=== PATIENT | male | born 1960 | race Caucasian/White ===

== ENCOUNTER 2017-06-10 05:45 | Day surgery (SDC) | payer OTHER | END 2017-06-10 09:15 | disposition home or self-care (01) | LOC: FECT 05:45 | PROC: GZB4ZZZ Other Electroconvulsive Therapy (ICD-10-PCS; principal; 2017-06-10) | DX: F33.2 Major depressive disorder, recurrent severe without psychotic features (principal) | CPT/HCPCS: 36415; 80053; 85027; 90870; 93005; 94760 ==

== ENCOUNTER 2017-06-12 05:48 | Day surgery (SDC) | payer OTHER ==
[2017-06-10 10:41] VITALS: BMI 29.2
[2017-06-12] MEDS ORDERED: KETAMINE HCL 500 MG/10 ML VIAL ONE (07:05)
[2017-06-12 08:29] VITALS: TEMP 97.6
[2017-06-12 08:59] VITALS: BP 108/68; PULSE 68
== END 2017-06-12 08:50 | disposition home or self-care (01) ==
LOC: FECT 05:48
PROVIDERS: ATTEND Psychiatry & Neurology Psychiatry
PROC: GZB4ZZZ Other Electroconvulsive Therapy (ICD-10-PCS; principal; 2017-06-12 07:15)
DX: F33.2 Major depressive disorder, recurrent severe without psychotic features (principal)
CPT/HCPCS: 90870; 94760

== ENCOUNTER 2017-06-14 05:36 | Day surgery (SDC) | payer OTHER | END 2017-06-14 08:35 | disposition home or self-care (01) | LOC: FECT 05:36 | PROC: GZB4ZZZ Other Electroconvulsive Therapy (ICD-10-PCS; principal; 2017-06-14) | DX: F33.2 Major depressive disorder, recurrent severe without psychotic features (principal) | CPT/HCPCS: 90870; 94760 ==

== ENCOUNTER 2017-06-17 05:49 | Day surgery (SDC) | payer OTHER ==
[2017-06-17 06:14] VITALS: TEMP 98; BMI 28.7
[2017-06-17] MEDS ORDERED: KETAMINE HCL 500 MG/10 ML VIAL ONE (06:52)
[2017-06-17 08:21] VITALS: BP 110/64; PULSE 64
== END 2017-06-17 08:15 | disposition home or self-care (01) ==
LOC: FECT 05:49
PROVIDERS: ATTEND Psychiatry & Neurology Psychiatry
PROC: GZB4ZZZ Other Electroconvulsive Therapy (ICD-10-PCS; principal; 2017-06-17 07:15)
DX: F33.2 Major depressive disorder, recurrent severe without psychotic features (principal)
CPT/HCPCS: 90870; 94760

== ENCOUNTER 2017-06-19 05:40 | Day surgery (SDC) | payer OTHER ==
[2017-06-19 06:20] VITALS: BMI 29.0
[2017-06-19] MEDS ORDERED: KETAMINE HCL 500 MG/10 ML VIAL ONE (07:10)
[2017-06-19 08:10] VITALS: TEMP 97.7
[2017-06-19 08:32] VITALS: BP 100/61; PULSE 69
== END 2017-06-19 08:40 | disposition home or self-care (01) ==
LOC: FECT 05:40
PROVIDERS: ATTEND Psychiatry & Neurology Psychiatry
PROC: GZB4ZZZ Other Electroconvulsive Therapy (ICD-10-PCS; principal; 2017-06-19 07:30)
DX: F33.2 Major depressive disorder, recurrent severe without psychotic features (principal)
CPT/HCPCS: 90870; 94760

== ENCOUNTER 2017-06-21 05:58 | Day surgery (SDC) | payer OTHER ==
[2017-06-21 06:15] VITALS: TEMP 97.9; BMI 28.8
[2017-06-21] MEDS ORDERED: KETAMINE HCL 500 MG/10 ML VIAL ONE (06:49)
[2017-06-21 09:05] VITALS: PULSE 64
[2017-06-21 09:09] VITALS: BP 100/61
== END 2017-06-21 08:40 | disposition home or self-care (01) ==
LOC: FECT 05:58
PROVIDERS: ATTEND Psychiatry & Neurology Psychiatry
PROC: GZB4ZZZ Other Electroconvulsive Therapy (ICD-10-PCS; principal; 2017-06-21 08:15)
DX: F33.2 Major depressive disorder, recurrent severe without psychotic features (principal)
CPT/HCPCS: 90870; 94760

== ENCOUNTER 2017-06-24 05:43 | Day surgery (SDC) | payer OTHER ==
[2017-06-24 06:17] VITALS: BMI 28.8
[2017-06-24] MEDS ORDERED: KETAMINE HCL 500 MG/10 ML VIAL ONE (07:00)
[2017-06-24 07:55] VITALS: TEMP 97.9
[2017-06-24 08:20] VITALS: BP 99/70; PULSE 67
== END 2017-06-24 08:23 | disposition home or self-care (01) ==
LOC: FECT 05:43
PROVIDERS: ATTEND Psychiatry & Neurology Psychiatry
PROC: GZB4ZZZ Other Electroconvulsive Therapy (ICD-10-PCS; principal; 2017-06-24 07:00)
DX: F33.2 Major depressive disorder, recurrent severe without psychotic features (principal)
CPT/HCPCS: 90870; 94760

== ENCOUNTER 2017-06-26 05:44 | Day surgery (SDC) | payer OTHER ==
[2017-06-26 06:06] VITALS: BMI 28.9
[2017-06-26] MEDS ORDERED: KETAMINE HCL 500 MG/10 ML VIAL ONE (06:53)
[2017-06-26 07:45] VITALS: TEMP 97.8
[2017-06-26 08:21] VITALS: BP 110/64; PULSE 63
== END 2017-06-26 08:25 | disposition home or self-care (01) ==
LOC: FECT 05:44
PROVIDERS: ATTEND Psychiatry & Neurology Psychiatry
PROC: GZB4ZZZ Other Electroconvulsive Therapy (ICD-10-PCS; principal; 2017-06-26 07:00)
DX: F33.2 Major depressive disorder, recurrent severe without psychotic features (principal)
CPT/HCPCS: 90870; 94760

== ENCOUNTER 2017-06-28 05:39 | Day surgery (SDC) | payer OTHER ==
[2017-06-28 06:16] VITALS: TEMP 97.7; BMI 28.8
[2017-06-28] MEDS ORDERED: KETAMINE HCL 500 MG/10 ML VIAL ONE (07:14)
[2017-06-28 08:12] VITALS: PULSE 53
[2017-06-28 08:43] VITALS: BP 114/68
== END 2017-06-28 08:25 | disposition home or self-care (01) ==
LOC: FECT 05:39
PROVIDERS: ATTEND Psychiatry & Neurology Psychiatry
PROC: GZB4ZZZ Other Electroconvulsive Therapy (ICD-10-PCS; principal; 2017-06-28 07:30)
DX: F33.2 Major depressive disorder, recurrent severe without psychotic features (principal)
CPT/HCPCS: 90870; 94760

== ENCOUNTER 2017-07-01 05:39 | Day surgery (SDC) | payer OTHER ==
[2017-07-01 06:25] VITALS: BMI 28.7
[2017-07-01] MEDS ORDERED: KETAMINE HCL 500 MG/10 ML VIAL ONE (07:07)
[2017-07-01] MEDS ORDERED: ACETAMINOPHEN 325 MG TABLET (FP) PO PRN (07:39)
[2017-07-01] MEDS ORDERED: ONDANSETRON 4 MG/2 ML VIAL IVPUSH PRN (07:39)
[2017-07-01 08:12] VITALS: PULSE 68; TEMP 97.7
[2017-07-01 08:33] VITALS: BP 104/64
== END 2017-07-01 08:25 | disposition home or self-care (01) ==
LOC: FECT 05:39
PROVIDERS: ATTEND Psychiatry & Neurology Psychiatry
PROC: GZB0ZZZ Electroconvulsive Therapy, Unilateral-Single Seizure (ICD-10-PCS; principal; 2017-07-01 07:30)
DX: F33.2 Major depressive disorder, recurrent severe without psychotic features (principal)
CPT/HCPCS: 90870; 94760

== ENCOUNTER 2017-07-03 05:35 | Day surgery (SDC) | payer OTHER ==
[2017-07-03 05:55] VITALS: BMI 28.8
[2017-07-03] MEDS ORDERED: KETAMINE HCL 500 MG/10 ML VIAL ONE (06:53)
[2017-07-03 07:44] VITALS: TEMP 97.6
[2017-07-03 08:14] VITALS: BP 104/67; PULSE 72
[2017-07-03] MEDS ORDERED: ONDANSETRON 4 MG/2 ML VIAL IVPUSH PRN (08:23)
[2017-07-03] MEDS ORDERED: ACETAMINOPHEN 325 MG TABLET (FP) PO PRN (08:23)
== END 2017-07-03 08:05 | disposition home or self-care (01) ==
LOC: FECT 05:35
PROVIDERS: ATTEND Psychiatry & Neurology Psychiatry
PROC: GZB4ZZZ Other Electroconvulsive Therapy (ICD-10-PCS; principal; 2017-07-03 07:15)
DX: F33.2 Major depressive disorder, recurrent severe without psychotic features (principal)
CPT/HCPCS: 90870; 94760

== ENCOUNTER 2017-07-05 05:39 | Day surgery (SDC) | payer OTHER ==
[2017-07-05 06:00] VITALS: BMI 28.8
[2017-07-05] MEDS ORDERED: KETAMINE HCL 500 MG/10 ML VIAL ONE (06:46)
[2017-07-05 07:41] VITALS: TEMP 97.8
[2017-07-05 08:15] VITALS: BP 109/70; PULSE 61
== END 2017-07-05 08:18 | disposition home or self-care (01) ==
LOC: FECT 05:39
PROVIDERS: ATTEND Psychiatry & Neurology Psychiatry
PROC: GZB4ZZZ Other Electroconvulsive Therapy (ICD-10-PCS; principal; 2017-07-05 07:00)
DX: F33.2 Major depressive disorder, recurrent severe without psychotic features (principal)
CPT/HCPCS: 90870; 94760

== ENCOUNTER 2017-07-08 05:37 | Day surgery (SDC) | payer OTHER ==
[2017-07-08 06:13] VITALS: TEMP 97.5; BMI 28.7
[2017-07-08] MEDS ORDERED: KETAMINE HCL 500 MG/10 ML VIAL ONE (06:57)
[2017-07-08 08:21] VITALS: BP 119/74; PULSE 57
== END 2017-07-08 08:15 | disposition home or self-care (01) ==
LOC: FECT 05:37
PROVIDERS: ATTEND Psychiatry & Neurology Psychiatry
PROC: GZB4ZZZ Other Electroconvulsive Therapy (ICD-10-PCS; principal; 2017-07-08 08:00)
DX: F33.2 Major depressive disorder, recurrent severe without psychotic features (principal)
CPT/HCPCS: 90870; 94760

== ENCOUNTER 2017-07-10 05:45 | Day surgery (SDC) | payer OTHER ==
[2017-07-10 08:43] VITALS: BP 104/81; PULSE 72; TEMP 98
--- NOTE | 2017-07-10 09:01 | HP ---
Admitting History and Physical - Admission History of Present Illness: patient is a 57-year-old male, with a past medical history of depression and anxiety. Patient presents for ECT, this will be his 14th ECT his last ECT was . Patient reports minimal improvement in depressive symptoms starting ECT Effexor was added to patient's medication regimen today. Patient denies any recent illnesses or hospitalizations. Patient denies any suicidal or homicidal ideation or visual or auditory hallucinations. Patient Does report compliance with prescribed medications. History Source: Patient Limitations to Obtaining History: No Limitations - Smoking History Smoking history: Never smoked Have you smoked in the past 12 months: No - Alcohol/Substance Use Hx Alcohol Use: No History of Substance Use: reports: None - Social History Usual Living Arrangement: Yes: With Spouse ADL: Independent History of Recent Travel: No Home Medications - Allergies Allergies/Adverse Reactions: Allergies Allergy/AdvReac Type Severity Reaction Status Date / Time Penicillins Allergy Intermediate Hives Verified 06/28/17 06:20 - Home Medications Home Medications: Ambulatory Orders Divalproex [Depakote -] 250 mg PO DAILY 06/10/17 Divalproex [Depakote -] 500 mg PO HS 06/10/17 Escitalopram Oxalate [Lexapro -] 10 mg PO DAILY 06/10/17 Lurasidone HCl [Latuda] 60 mg PO DAILY 06/10/17 Family Disease History - Family Disease History Family Disease History: Diabetes: Father, Mother, Son, Heart Disease: Mother, Other: Father, Sister, Son Review of Systems - Review of Systems Constitutional: reports: No Symptoms Eyes: reports: No Symptoms HENT: reports: No Symptoms Neck: reports: No Symptoms Cardiovascular: reports: No Symptoms Respiratory: reports: No Symptoms Gastrointestinal: reports: No Symptoms Genitourinary: reports: No Symptoms Musculoskeletal: reports: No Symptoms Integumentary: reports: No Symptoms Neurological: reports: No Symptoms Endocrine: reports: No Symptoms Hematology/Lymphatic: reports: No Symptoms Psychiatric: reports: Anxiety, Depression Physical Examination Vital Signs: Vital Signs Temperature 98 F 07/10/17 08:42 Pulse Rate 72 07/10/17 08:42 Respiratory Rate 16 07/10/17 08:42 Blood Pressure 104/81 07/10/17 08:42 O2 Sat by Pulse Oximetry (%) 94 L 07/10/17 08:42 Constitutional: Yes: Well Nourished, No Distress, Calm Eyes: Yes: WNL, Conjunctiva Clear, EOM Intact HENT: Yes: WNL, Atraumatic, Normocephalic Neck: Yes: WNL, Supple, Trachea Midline Cardiovascular: Yes: WNL, Regular Rate and Rhythm, S1, S2 Respiratory: Yes: WNL, Regular, CTA Bilaterally Gastrointestinal: Yes: WNL, Normal Bowel Sounds, Soft ...Rectal Exam: Yes: Deferred Renal/: Yes: WNL Breast(s): Yes: WNL Musculoskeletal: Yes: WNL Extremities: Yes: WNL Edema: No Peripheral Pulses WNL: Yes Peripheral Pulses: Left Radial: 4+, Right Radial: 4+, Left Doralis Pedis: 3+, Right Dorsalis Pedis: 3+, Left Femoral: 3+, Right Femoral: 3+ Integumentary: Yes: WNL Neurological: Yes: WNL, Alert, Oriented, Cran Nerves II-XII Intact ...Motor Strength: WNL Psychiatric: Yes: WNL, Alert, Oriented Labs: Reviewed 06/10/2017. Imaging - Results EKG: Image Reviewed, Other (sinus bradycardia left axis deviation) Assessment/Plan patient is a 49-year-old male that presents for ECT labs and EKG reviewed. patient is medically optimized for procedure. informed consent risk and benefits to be obtained by Dr. Millan
[2017-07-12] MEDS ORDERED: KETAMINE HCL 500 MG/10 ML VIAL ONE (06:49)
== END 2017-07-10 08:55 | disposition home or self-care (01) ==
LOC: FECT 05:45
PROVIDERS: ATTEND Psychiatry & Neurology Psychiatry
PROC: GZB4ZZZ Other Electroconvulsive Therapy (ICD-10-PCS; principal; 2017-07-10 07:45)
DX: F33.2 Major depressive disorder, recurrent severe without psychotic features (principal)
CPT/HCPCS: 90870; 94760

== ENCOUNTER 2017-07-12 05:37 | Day surgery (SDC) | payer OTHER ==
[2017-07-12 06:12] VITALS: BMI 28.5
[2017-07-12 07:45] VITALS: PULSE 58; TEMP 98.6
[2017-07-12 08:41] VITALS: BP 103/67
== END 2017-07-12 08:15 | disposition home or self-care (01) ==
LOC: FECT 05:37
PROVIDERS: ATTEND Psychiatry & Neurology Psychiatry
PROC: GZB4ZZZ Other Electroconvulsive Therapy (ICD-10-PCS; principal; 2017-07-12 07:30)
DX: F33.2 Major depressive disorder, recurrent severe without psychotic features (principal)
CPT/HCPCS: 90870; 94760

== ENCOUNTER 2017-07-17 05:39 | Day surgery (SDC) | payer OTHER ==
[2017-07-11 15:55] VITALS: BMI 28.5
[2017-07-17 06:09] VITALS: TEMP 97.7
[2017-07-17] MEDS ORDERED: KETAMINE HCL 500 MG/10 ML VIAL ONE (06:49)
[2017-07-17 09:15] VITALS: BP 112/72; PULSE 66
== END 2017-07-17 08:20 | disposition home or self-care (01) ==
LOC: FECT 05:39
PROVIDERS: ATTEND Psychiatry & Neurology Psychiatry
PROC: GZB4ZZZ Other Electroconvulsive Therapy (ICD-10-PCS; principal; 2017-07-17 07:30)
DX: F33.2 Major depressive disorder, recurrent severe without psychotic features (principal)
CPT/HCPCS: 90870; 94760

== ENCOUNTER 2017-07-19 05:37 | Day surgery (SDC) | payer OTHER ==
[2017-07-19 06:05] VITALS: TEMP 97.5; BMI 28.6
[2017-07-19] MEDS ORDERED: KETAMINE HCL 500 MG/10 ML VIAL ONE (06:58)
[2017-07-19] MEDS ORDERED: ONDANSETRON 4 MG/2 ML VIAL IVPUSH PRN (07:59)
[2017-07-19] MEDS ORDERED: oxyCODONE HCL 5 MG TABLET PO PRN (07:59)
[2017-07-19 08:17] VITALS: BP 126/66; PULSE 54
== END 2017-07-19 08:15 | disposition home or self-care (01) ==
LOC: FECT 05:37
PROVIDERS: ATTEND Psychiatry & Neurology Psychiatry
PROC: GZB4ZZZ Other Electroconvulsive Therapy (ICD-10-PCS; principal; 2017-07-19 08:15)
DX: F33.2 Major depressive disorder, recurrent severe without psychotic features (principal)
CPT/HCPCS: 90870; 94760

== ENCOUNTER 2017-07-22 05:41 | Day surgery (SDC) | payer OTHER ==
[2017-07-22 06:27] VITALS: BMI 28.5
[2017-07-22] MEDS ORDERED: KETAMINE HCL 500 MG/10 ML VIAL ONE (07:24)
[2017-07-22 08:13] VITALS: TEMP 98.2
[2017-07-22 09:44] VITALS: BP 106/66; PULSE 72
== END 2017-07-22 09:00 | disposition home or self-care (01) ==
LOC: FECT 05:41
PROVIDERS: ATTEND Psychiatry & Neurology Psychiatry
PROC: GZB4ZZZ Other Electroconvulsive Therapy (ICD-10-PCS; principal; 2017-07-22 08:00)
DX: F33.2 Major depressive disorder, recurrent severe without psychotic features (principal)
CPT/HCPCS: 90870; 94760

== ENCOUNTER 2017-07-24 05:41 | Day surgery (SDC) | payer OTHER ==
[2017-07-24 06:24] VITALS: BMI 28.3
[2017-07-24] MEDS ORDERED: KETAMINE HCL 500 MG/10 ML VIAL ONE (06:56)
[2017-07-24 08:51] VITALS: BP 120/76; PULSE 66; TEMP 98.5
== END 2017-07-24 08:40 | disposition home or self-care (01) ==
LOC: FECT 05:41
PROVIDERS: ATTEND Psychiatry & Neurology Psychiatry
PROC: GZB4ZZZ Other Electroconvulsive Therapy (ICD-10-PCS; principal; 2017-07-24 08:00)
DX: F33.2 Major depressive disorder, recurrent severe without psychotic features (principal)
CPT/HCPCS: 90870; 94760

== ENCOUNTER 2017-08-07 05:40 | Day surgery (SDC) | payer OTHER ==
[2017-08-07 06:10] VITALS: BMI 28.8
[2017-08-07] MEDS ORDERED: KETAMINE HCL 500 MG/10 ML VIAL ONE (06:56)
[2017-08-07 08:09] VITALS: TEMP 97.3
[2017-08-07] MEDS ORDERED: ONDANSETRON 4 MG/2 ML VIAL IVPUSH PRN (08:10)
[2017-08-07] MEDS ORDERED: PROMETHAZINE HCL 25 MG/1 ML VIAL IVPUSH PRN (08:10)
[2017-08-07] MEDS ORDERED: ACETAMINOPHEN 500 MG TABLET (FP) PO PRN (08:10)
[2017-08-07 08:30] VITALS: BP 117/72; PULSE 62
== END 2017-08-07 08:32 | disposition home or self-care (01) ==
LOC: FECT 05:40
PROVIDERS: ATTEND Psychiatry & Neurology Psychiatry
PROC: GZB4ZZZ Other Electroconvulsive Therapy (ICD-10-PCS; principal; 2017-08-07 07:15)
DX: F33.2 Major depressive disorder, recurrent severe without psychotic features (principal)
CPT/HCPCS: 90870; 94760

== ENCOUNTER 2017-08-09 05:42 | Day surgery (SDC) | payer OTHER ==
[2017-08-09 06:05] VITALS: BMI 28.9
[2017-08-09] MEDS ORDERED: KETAMINE HCL 500 MG/10 ML VIAL ONE (07:02)
[2017-08-09 08:17] VITALS: TEMP 97.6
[2017-08-09 08:46] VITALS: BP 114/72; PULSE 58
== END 2017-08-09 08:50 | disposition home or self-care (01) ==
LOC: FECT 05:42
PROVIDERS: ATTEND Psychiatry & Neurology Psychiatry
PROC: GZB4ZZZ Other Electroconvulsive Therapy (ICD-10-PCS; principal; 2017-08-09 08:00)
DX: F33.2 Major depressive disorder, recurrent severe without psychotic features (principal)
CPT/HCPCS: 90870; 94760

== ENCOUNTER 2017-08-12 05:38 | Day surgery (SDC) | payer OTHER ==
[2017-08-12 06:05] VITALS: BMI 29.7
[2017-08-12] MEDS ORDERED: KETAMINE HCL 500 MG/10 ML VIAL ONE (06:54)
[2017-08-12 07:59] VITALS: TEMP 98.2
--- NOTE | 2017-08-12 08:16 | HP ---
Admitting History and Physical - Admission History of Present Illness: Patient is a 57 y/o male with a past medical history of depression and anxiety. patient presents for ect, his last ect was 08/09/17. Patient reports significant improvement in depressive symptoms since starting ect. He reports an improvement in his appetite and energy levels since starting ect. He denies any recent illnesses or hospitalizations. He denies any suicidal or homicidal ideation, visual or auditory hallucinations. History Source: Patient, Caregiver Limitations to Obtaining History: No Limitations - Smoking History Smoking history: Never smoked Have you smoked in the past 12 months: No - Alcohol/Substance Use Hx Alcohol Use: No History of Substance Use: reports: None - Social History Usual Living Arrangement: Yes: With Spouse ADL: Independent History of Recent Travel: No Home Medications - Allergies Allergies/Adverse Reactions: Allergies Allergy/AdvReac Type Severity Reaction Status Date / Time Penicillins Allergy Intermediate Hives Verified 08/09/17 11:59 - Home Medications Home Medications: Ambulatory Orders Divalproex [Depakote -] 250 mg PO DAILY 06/10/17 Divalproex [Depakote -] 500 mg PO HS 06/10/17 Venlafaxine HCl ER [Effexor Xr -] 150 mg PO DAILY 07/12/17 Olanzapine [Zyprexa -] 10 mg PO HS 08/07/17 Family Disease History - Family Disease History Family Disease History: Diabetes: Father, Mother, Son, Heart Disease: Mother, Other: Father, Sister, Son Review of Systems - Review of Systems Constitutional: reports: No Symptoms Eyes: reports: No Symptoms HENT: reports: No Symptoms Neck: reports: No Symptoms Cardiovascular: reports: No Symptoms Respiratory: reports: No Symptoms Gastrointestinal: reports: No Symptoms Genitourinary: reports: No Symptoms Musculoskeletal: reports: No Symptoms Integumentary: reports: No Symptoms Neurological: reports: No Symptoms Endocrine: reports: No Symptoms Hematology/Lymphatic: reports: No Symptoms Psychiatric: reports: No Symptoms Physical Examination Vital Signs: Vital Signs Temperature 98.2 F 08/12/17 07:45 Pulse Rate 66 08/12/17 07:45 Respiratory Rate 18 08/12/17 07:45 Blood Pressure 115/70 08/12/17 07:45 O2 Sat by Pulse Oximetry (%) 98 08/12/17 07:45 Constitutional: Yes: Well Nourished, No Distress, Calm Eyes: Yes: WNL, Conjunctiva Clear, EOM Intact HENT: Yes: WNL, Atraumatic, Normocephalic Neck: Yes: WNL, Supple, Trachea Midline Cardiovascular: Yes: WNL, Regular Rate and Rhythm, S1, S2 Respiratory: Yes: WNL, Regular, CTA Bilaterally Gastrointestinal: Yes: WNL, Normal Bowel Sounds, Soft ...Rectal Exam: Yes: Deferred Renal/: Yes: WNL Musculoskeletal: Yes: WNL Extremities: Yes: WNL Edema: No Peripheral Pulses WNL: Yes Integumentary: Yes: WNL Neurological: Yes: WNL, Alert, Oriented ...Motor Strength: WNL Psychiatric: Yes: WNL, Alert, Oriented Labs: reviewed 06/05 Imaging - Results EKG: Other (sinus bradycardia left axis deviation) Assessment/Plan patient is a 57 y/o male that presents for ect, labs and ekg reviewed patent is medically optimized for procedure informed consent, risks/benefits to be obtained by Dr Millan.
[2017-08-12 08:48] VITALS: BP 118/72; PULSE 64
== END 2017-08-12 08:50 | disposition home or self-care (01) ==
LOC: FECT 05:38
PROVIDERS: ATTEND Psychiatry & Neurology Psychiatry
PROC: GZB4ZZZ Other Electroconvulsive Therapy (ICD-10-PCS; principal; 2017-08-12 08:15)
DX: F33.2 Major depressive disorder, recurrent severe without psychotic features (principal)
CPT/HCPCS: 90870; 94760

== ENCOUNTER 2017-08-14 05:40 | Day surgery (SDC) | payer OTHER ==
[2017-08-14 06:10] VITALS: BMI 30.1
[2017-08-14] MEDS ORDERED: KETAMINE HCL 500 MG/10 ML VIAL ONE (07:00)
[2017-08-14 08:04] VITALS: TEMP 97.7
[2017-08-14 08:38] VITALS: BP 121/83; PULSE 74
== END 2017-08-14 08:40 | disposition home or self-care (01) ==
LOC: FECT 05:40
PROVIDERS: ATTEND Psychiatry & Neurology Psychiatry
PROC: GZB4ZZZ Other Electroconvulsive Therapy (ICD-10-PCS; principal; 2017-08-14 08:00)
DX: F33.2 Major depressive disorder, recurrent severe without psychotic features (principal)
CPT/HCPCS: 90870; 94760

== ENCOUNTER 2017-08-23 05:39 | Day surgery (SDC) | payer OTHER ==
[2017-08-23 06:13] VITALS: BMI 29.5
[2017-08-23] MEDS ORDERED: KETAMINE HCL 500 MG/10 ML VIAL ONE (06:57)
[2017-08-23 07:57] VITALS: TEMP 97.7
[2017-08-23 08:16] VITALS: BP 110/71; PULSE 67
[2017-08-23] MEDS ORDERED: ONDANSETRON 4 MG/2 ML VIAL IVPUSH PRN (09:28)
== END 2017-08-23 08:20 | disposition home or self-care (01) ==
LOC: FECT 05:39
PROVIDERS: ATTEND Psychiatry & Neurology Psychiatry
PROC: GZB4ZZZ Other Electroconvulsive Therapy (ICD-10-PCS; principal; 2017-08-23 08:00)
DX: F33.2 Major depressive disorder, recurrent severe without psychotic features (principal)

== ENCOUNTER 2017-08-30 05:41 | Day surgery (SDC) | payer OTHER ==
[2017-08-30 06:28] VITALS: BMI 30.1
[2017-08-30] MEDS ORDERED: KETAMINE HCL 500 MG/10 ML VIAL ONE (07:07)
[2017-08-30 08:11] VITALS: BP 114/78; PULSE 72
[2017-08-30 08:42] VITALS: TEMP 98.2
== END 2017-08-30 08:32 | disposition home or self-care (01) ==
LOC: FECT 05:41
PROVIDERS: ATTEND Psychiatry & Neurology Psychiatry
PROC: GZB4ZZZ Other Electroconvulsive Therapy (ICD-10-PCS; principal; 2017-08-30 08:00)
DX: F33.2 Major depressive disorder, recurrent severe without psychotic features (principal)
CPT/HCPCS: 90870; 94760

== ENCOUNTER 2017-09-06 05:39 | Day surgery (SDC) | payer OTHER ==
[2017-09-05 11:41] VITALS: BMI 30.1
[2017-09-06 06:11] VITALS: TEMP 97.6
[2017-09-06] MEDS ORDERED: KETAMINE HCL 500 MG/10 ML VIAL ONE (06:55)
[2017-09-06 08:15] VITALS: BP 125/81; PULSE 62
== END 2017-09-06 08:10 | disposition home or self-care (01) ==
LOC: FECT 05:39
PROVIDERS: ATTEND Psychiatry & Neurology Psychiatry
PROC: GZB4ZZZ Other Electroconvulsive Therapy (ICD-10-PCS; principal; 2017-09-06 08:30)
DX: F33.2 Major depressive disorder, recurrent severe without psychotic features (principal)
CPT/HCPCS: 90870; 94760

== ENCOUNTER 2017-09-09 05:41 | Day surgery (SDC) | payer OTHER ==
[2017-09-06 12:16] VITALS: BMI 30.1
[2017-09-09 06:11] VITALS: TEMP 98.1
[2017-09-09] MEDS ORDERED: KETAMINE HCL 500 MG/10 ML VIAL ONE (07:08)
[2017-09-09] MEDS ORDERED: ONDANSETRON 4 MG/2 ML VIAL IVPUSH PRN (07:25)
[2017-09-09 08:49] VITALS: BP 133/83; PULSE 60
== END 2017-09-09 08:35 | disposition home or self-care (01) ==
LOC: FECT 05:41
PROVIDERS: ATTEND Psychiatry & Neurology Psychiatry
PROC: GZB4ZZZ Other Electroconvulsive Therapy (ICD-10-PCS; principal; 2017-09-09 09:30)
DX: F33.2 Major depressive disorder, recurrent severe without psychotic features (principal)
CPT/HCPCS: 90870; 94760

== ENCOUNTER 2017-09-12 05:46 | Day surgery (SDC) | payer OTHER ==
[2017-09-11 14:59] VITALS: BMI 30.1
[2017-09-12 06:47] VITALS: TEMP 97.9
--- NOTE | 2017-09-12 07:05 | HP ---
Admitting History and Physical - Admission History of Present Illness: Patient is a 57 y/o male with a past medical history of depression and anxiety. Patient present for ect, he has been undergoing ect since 05/2017, his last ect was09/09/17. Patient reports feeling well, he reports a slight improvement in depressive symptoms since starting ECT. Patient reports his depakote was discontinued and reports feeling well since discontinuing the medications. patient denies any suicdal or homicidal ideation, visual or auditory hallucinations. History Source: Patient Limitations to Obtaining History: No Limitations - Smoking History Smoking history: Never smoked Have you smoked in the past 12 months: No - Alcohol/Substance Use Hx Alcohol Use: No History of Substance Use: reports: None - Social History Usual Living Arrangement: Yes: With Spouse ADL: Independent History of Recent Travel: No Home Medications - Allergies Allergies/Adverse Reactions: Allergies Allergy/AdvReac Type Severity Reaction Status Date / Time Penicillins Allergy Intermediate Hives Verified 09/12/17 06:52 - Home Medications Home Medications: Ambulatory Orders Venlafaxine HCl ER [Effexor Xr -] 150 mg PO DAILY 07/12/17 Olanzapine [Zyprexa -] 10 mg PO HS 08/07/17 Family Disease History - Family Disease History Family Disease History: Diabetes: Father, Mother, Son, Heart Disease: Mother, Other: Father, Sister, Son Review of Systems - Review of Systems Constitutional: reports: No Symptoms Eyes: reports: No Symptoms HENT: reports: No Symptoms Neck: reports: No Symptoms Cardiovascular: reports: No Symptoms Respiratory: reports: No Symptoms Gastrointestinal: reports: No Symptoms Genitourinary: reports: No Symptoms Musculoskeletal: reports: No Symptoms Integumentary: reports: No Symptoms Neurological: reports: No Symptoms Endocrine: reports: No Symptoms Hematology/Lymphatic: reports: No Symptoms Psychiatric: reports: Depression Physical Examination Vital Signs: Vital Signs Temperature 97.9 F 09/12/17 06:43 Pulse Rate 56 L 09/12/17 06:43 Respiratory Rate 16 09/12/17 06:43 Blood Pressure 136/75 09/12/17 06:43 O2 Sat by Pulse Oximetry (%) 97 09/12/17 06:43 Constitutional: Yes: Well Nourished, No Distress, Calm Eyes: Yes: WNL, Conjunctiva Clear, EOM Intact HENT: Yes: WNL, Atraumatic, Normocephalic Neck: Yes: WNL, Supple, Trachea Midline Cardiovascular: Yes: WNL, Regular Rate and Rhythm, S1, S2 Respiratory: Yes: WNL, Regular, CTA Bilaterally Gastrointestinal: Yes: WNL, Normal Bowel Sounds, Soft ...Rectal Exam: Yes: Deferred Renal/: Yes: WNL Musculoskeletal: Yes: WNL Extremities: Yes: WNL Edema: No Peripheral Pulses WNL: Yes Peripheral Pulses: Left Radial: 4+, Right Radial: 4+, Left Doralis Pedis: 3+, Right Dorsalis Pedis: 3+, Left Femoral: 3+, Right Femoral: 3+ Integumentary: Yes: WNL Neurological: Yes: WNL, Alert, Oriented ...Motor Strength: WNL Psychiatric: Yes: WNL, Alert, Oriented Labs: reviewed 09/04 Imaging - Results EKG: Image Reviewed, Other (nsr) Assessment/Plan patient is a 57 y/o male that presents for ect, labs and ekg reviewed patient is medically optimized for procedure informed consent, risks/benefits to be obtained by Dr Millan
[2017-09-12] MEDS ORDERED: ONDANSETRON 4 MG/2 ML VIAL IVPUSH PRN (07:18)
[2017-09-12] MEDS ORDERED: KETAMINE HCL 500 MG/10 ML VIAL ONE (08:06)
[2017-09-12 09:24] VITALS: BP 123/79; PULSE 69
== END 2017-09-12 09:25 | disposition home or self-care (01) ==
LOC: FECT 05:46
PROVIDERS: ATTEND Psychiatry & Neurology Psychiatry
PROC: GZB4ZZZ Other Electroconvulsive Therapy (ICD-10-PCS; principal; 2017-09-12 08:30)
DX: F33.2 Major depressive disorder, recurrent severe without psychotic features (principal)
CPT/HCPCS: 90870; 94760

== ENCOUNTER 2017-09-16 05:32 | Day surgery (SDC) | payer OTHER ==
[2017-09-13 15:10] VITALS: BMI 30.1
[2017-09-16] MEDS ORDERED: KETAMINE HCL 500 MG/10 ML VIAL ONE (07:04)
[2017-09-16 08:08] VITALS: TEMP 98
[2017-09-16 08:24] VITALS: BP 120/77; PULSE 68
== END 2017-09-16 08:20 | disposition home or self-care (01) ==
LOC: FECT 05:32
PROVIDERS: ATTEND Psychiatry & Neurology Psychiatry
PROC: GZB4ZZZ Other Electroconvulsive Therapy (ICD-10-PCS; principal; 2017-09-16 07:45)
DX: F33.2 Major depressive disorder, recurrent severe without psychotic features (principal)
CPT/HCPCS: 90870; 94760

== ENCOUNTER 2017-09-23 05:41 | Day surgery (SDC) | payer OTHER ==
[2017-09-23 06:06] VITALS: TEMP 98.1; BMI 29.5
[2017-09-23] MEDS ORDERED: KETAMINE HCL 500 MG/10 ML VIAL ONE (06:46)
[2017-09-23 08:13] VITALS: BP 136/80; PULSE 61
== END 2017-09-23 08:15 | disposition home or self-care (01) ==
LOC: FECT 05:41
PROVIDERS: ATTEND Psychiatry & Neurology Psychiatry
PROC: GZB4ZZZ Other Electroconvulsive Therapy (ICD-10-PCS; principal; 2017-09-23 08:00)
DX: F33.2 Major depressive disorder, recurrent severe without psychotic features (principal)
CPT/HCPCS: 90870; 94760

== ENCOUNTER 2017-09-26 05:39 | Day surgery (SDC) | payer OTHER ==
[2017-09-26 06:10] VITALS: BMI 29.5
[2017-09-26 08:12] VITALS: TEMP 98.2
[2017-09-26 08:22] VITALS: BP 122/85; PULSE 81
== END 2017-09-26 08:20 | disposition home or self-care (01) ==
LOC: FECT 05:39
PROVIDERS: ATTEND Psychiatry & Neurology Psychiatry
PROC: GZB4ZZZ Other Electroconvulsive Therapy (ICD-10-PCS; principal; 2017-09-26 07:45)
DX: F33.2 Major depressive disorder, recurrent severe without psychotic features (principal)

== ENCOUNTER 2017-10-10 05:36 | Day surgery (SDC) | payer OTHER ==
[2017-10-10 06:07] VITALS: TEMP 97.6; BMI 29.1
[2017-10-10 08:39] VITALS: BP 122/78; PULSE 88
[2017-10-10] MEDS ORDERED: ONDANSETRON 4 MG/2 ML VIAL IVPUSH PRN (09:17)
[2017-10-10] MEDS ORDERED: LACTATED RINGERS SOLUTION 1,000 ML IV SCH (09:30)
== END 2017-10-10 08:30 | disposition home or self-care (01) ==
LOC: FECT 05:36
PROVIDERS: ATTEND Psychiatry & Neurology Psychiatry
PROC: GZB4ZZZ Other Electroconvulsive Therapy (ICD-10-PCS; principal; 2017-10-10 07:15)
DX: F33.2 Major depressive disorder, recurrent severe without psychotic features (principal)
CPT/HCPCS: 90870; 94760

== ENCOUNTER 2017-10-17 05:33 | Day surgery (SDC) | payer OTHER ==
[2017-10-17 06:38] VITALS: TEMP 98; BMI 30.4
--- NOTE | 2017-10-17 07:31 | HP ---
Admitting History and Physical - Admission History of Present Illness: Patient is a 57 y/o male with a past medical history of depression and anxiety. Patient presents for ect, his last ect was 10/10/17. Patient reports feeling well, he denies any recent illnesses or hospitalizations. Patient reports a slight improvement in depressive symptoms since starting ect. He does report ongoing feelings of anxiety. Patient reports starting buspar 2 weeks ago and reports tolerating medication. Patient denies any suicidal or homicidal ideation, visual or auditory hallucinations. History Source: Patient Limitations to Obtaining History: No Limitations - Smoking History Smoking history: Never smoked Have you smoked in the past 12 months: No - Alcohol/Substance Use Hx Alcohol Use: No History of Substance Use: reports: None - Social History Usual Living Arrangement: Yes: With Spouse ADL: Independent History of Recent Travel: No Home Medications - Allergies Allergies/Adverse Reactions: Allergies Allergy/AdvReac Type Severity Reaction Status Date / Time Penicillins Allergy Intermediate Hives Verified 10/07/17 06:03 - Home Medications Home Medications: Ambulatory Orders Venlafaxine HCl ER [Effexor Xr -] 150 mg PO DAILY 07/12/17 Olanzapine [Zyprexa -] 10 mg PO HS 08/07/17 Benztropine Mesylate 1 mg PO DAILY 10/07/17 Buspirone HCl [Buspar -] 10 mg PO BID 10/10/17 Family Disease History - Family Disease History Family Disease History: Diabetes: Father, Mother, Son, Heart Disease: Mother, Other: Father, Sister, Son Review of Systems - Review of Systems Constitutional: reports: No Symptoms Eyes: reports: No Symptoms HENT: reports: No Symptoms Neck: reports: No Symptoms Cardiovascular: reports: No Symptoms Respiratory: reports: No Symptoms Gastrointestinal: reports: No Symptoms Genitourinary: reports: No Symptoms Musculoskeletal: reports: No Symptoms Integumentary: reports: No Symptoms Neurological: reports: No Symptoms Endocrine: reports: No Symptoms Hematology/Lymphatic: reports: No Symptoms Psychiatric: reports: No Symptoms Physical Examination Vital Signs: Vital Signs Temperature 98.0 F 10/17/17 06:30 Pulse Rate 68 10/17/17 06:30 Respiratory Rate 18 10/17/17 06:30 Blood Pressure 110/76 10/17/17 06:30 O2 Sat by Pulse Oximetry (%) 97 10/17/17 06:30 Constitutional: Yes: Well Nourished, No Distress, Calm Eyes: Yes: WNL, Conjunctiva Clear, EOM Intact HENT: Yes: WNL, Atraumatic, Normocephalic Neck: Yes: WNL, Supple, Trachea Midline Cardiovascular: Yes: WNL, Regular Rate and Rhythm, S1, S2 Respiratory: Yes: WNL, Regular, CTA Bilaterally Gastrointestinal: Yes: WNL, Normal Bowel Sounds, Soft ...Rectal Exam: Yes: Deferred Renal/: Yes: WNL Musculoskeletal: Yes: WNL Extremities: Yes: WNL Edema: No Peripheral Pulses WNL: Yes Peripheral Pulses: Left Radial: 4+, Right Radial: 4+, Left Doralis Pedis: 3+, Right Dorsalis Pedis: 3+, Left Femoral: 3+, Right Femoral: 3+ Integumentary: Yes: WNL Neurological: Yes: WNL, Alert, Oriented ...Motor Strength: WNL Psychiatric: Yes: WNL, Alert, Oriented Labs: reviewed 06/05 Imaging - Results EKG: Other (sinus bradycardia) Assessment/Plan patient is 57 y/o male that presents for ect, labs and ekg reviewed patient is medically optimized for procedure informed consent, risk/benefits to be obtained by Dr Millan
[2017-10-17 09:04] VITALS: BP 122/74; PULSE 66
== END 2017-10-17 09:05 | disposition home or self-care (01) ==
LOC: FECT 05:33
PROVIDERS: ATTEND Psychiatry & Neurology Psychiatry
PROC: GZB4ZZZ Other Electroconvulsive Therapy (ICD-10-PCS; principal; 2017-10-17 07:00)
DX: F33.2 Major depressive disorder, recurrent severe without psychotic features (principal)
CPT/HCPCS: 90870; 94760

== ENCOUNTER 2017-10-31 05:39 | Day surgery (SDC) | payer OTHER ==
[2017-10-31 06:12] VITALS: BMI 30.6
[2017-10-31] MEDS ORDERED: KETAMINE HCL 500 MG/10 ML VIAL ONE (06:55)
[2017-10-31] MEDS ORDERED: LACTATED RINGERS SOLUTION 1,000 ML IV SCH (07:45)
[2017-10-31 07:57] VITALS: TEMP 97.8
[2017-10-31 08:23] VITALS: BP 119/72; PULSE 72
== END 2017-10-31 08:26 | disposition home or self-care (01) ==
LOC: FECT 05:39
PROVIDERS: ATTEND Psychiatry & Neurology Psychiatry
PROC: GZB4ZZZ Other Electroconvulsive Therapy (ICD-10-PCS; principal; 2017-10-31 07:00)
DX: F33.2 Major depressive disorder, recurrent severe without psychotic features (principal)
CPT/HCPCS: 90870; 94760

== ENCOUNTER 2017-11-08 05:40 | Day surgery (SDC) | payer OTHER ==
[2017-10-31 13:07] VITALS: BMI 30.6
[2017-11-08] MEDS ORDERED: KETAMINE HCL 500 MG/10 ML VIAL ONE (06:56)
[2017-11-08 08:36] VITALS: BP 144/91
[2017-11-08 08:42] VITALS: PULSE 58; TEMP 98
== END 2017-11-08 08:35 | disposition home or self-care (01) ==
LOC: FECT 05:40
PROVIDERS: ATTEND Psychiatry & Neurology Psychiatry
PROC: GZB4ZZZ Other Electroconvulsive Therapy (ICD-10-PCS; principal; 2017-11-08 07:00)
DX: F33.2 Major depressive disorder, recurrent severe without psychotic features (principal)
CPT/HCPCS: 90870; 94760